=== PATIENT | female | born 1985 | race Caucasian/White ===

== ENCOUNTER 2019-10-31 10:03 | Inpatient (IN) | payer OTHER ==
[~2019-10-31] VITALS: Ht 154.9 cm; Wt 111.3 kg
[2019-10-31] MEDS ORDERED: SODIUM CHLORIDE 0.9% 1000ML 1,000 ML IV STA (10:20)
[2019-10-31] MEDS ORDERED: ONDANSETRON HCL INJ 2MG/ML 2ML 2 MG/ML VIAL IV STA (10:29)
[2019-10-31 11:20] LABS: CLARITY,URINE CLEAR (CLEAR); COLOR,URINE YELLOW (YELLOW); LEUKOCYTE ESTERASE ,URINE SMALL (NEGATIVE); NITRITE,URINE NEGATIVE (NEGATIVE); PROTEIN,URINE DIPSTICK NEGATIVE (NEGATIVE)
[2019-10-31 11:21] LABS: BILIRUBIN,URINE SMALL (NEGATIVE); KETONES,URINE NEGATIVE (NEGATIVE); URINE UROBILINOGEN 0.2 mg/dL (0.2 - 1)
[2019-10-31 11:35] LABS: BASOPHILS # (AUTO) 0.1 (0.0-0.1); BASOPHILS % 0.4 % (0.0-1.0); EOSINOPHILS # (AUTO) 0.2 (0.0-0.4); HEMATOCRIT 39.6 % (34.2-44.1); HEMOGLOBIN 13.3 g/dL (12.0-16.0); LYMPHOCYTES # (AUTO) 1.7 (1.0-3.2); LYMPHOCYTES % 14.7 % (18.0-39.1); MEAN CORPUSCULAR HGB CONC 33.6 g/dL (31-35); MEAN CORPUSCULAR VOLUME 89.2 fL (81-99); MONOCYTES # (AUTO) 0.9 (0.2-0.8); MONOCYTES % 7.8 % (4.4-11.3); NEUTROPHILS # (AUTO) 8.7 (2.1-6.9); NEUTROPHILS % 74.5 % (38.7-80.0); PLATELET COUNT 326 x10e3/uL (140-360); RED BLOOD COUNT 4.44 x10e6/uL (3.6-5.1); RED CELL DISTRIBUTION WIDTH 12.7 % (11.7-14.4)
[2019-10-31 11:45] LABS: BACTERIA,URINE MODERATE /HPF; EPITHELIAL CELLS,URINE MANY /LPF; RBC,URINE 21-50 /HPF (0-5); WBC,URINE (MAN) >50 /HPF (0-5)
[2019-10-31 11:50] LABS: INR 0.95; PARTIAL THROMBOPLASTIN TIME 26.4 seconds (23.8-35.5); PROTHROMBIN TIME 12.9 seconds (11.9-14.5)
[2019-10-31 11:57] LABS: ALANINE AMINOTRANSFERASE 264 IU/L (0-55); ALBUMIN 3.5 g/dL (3.5-5.0); ALBUMIN/GLOBULIN RATIO 0.9 (0.8-2.0); ALKALINE PHOSPHATASE 304 IU/L (40-150); AMYLASE 41 U/L (25-125); ANION GAP 12.4 mmol/L (8-16); BLOOD UREA NITROGEN 6 mg/dL (7-26); BUN/CREATININE RATIO 8 (6-25); CALCIUM 8.8 mg/dL (8.4-10.2); CARBON DIOXIDE 21 mmol/L (22-29); CHLORIDE 104 mmol/L (98-107); CREATININE, SERUM 0.75 mg/dL (0.57-1.11); EST GLOMERULAR FILTRATION RATE > 60 ML/MIN (60-); GLUCOSE 96 mg/dL (74-118); LIPASE 12 U/L (8-78); POTASSIUM 3.4 mmol/L (3.5-5.1); SODIUM 134 mmol/L (136-145)
[2019-10-31 12:23] LABS: HCG,QUANTITATIVE 16544.86 mIU/mL (0-10)
--- NOTE | 2019-10-31 13:12 | Diagnostic Imaging Report ---
Right upper quadrant abdominal ultrasound, 10/31/2019. History: Abdominal pain. Comparison: None available. Discussion: Transverse and longitudinal images of the right upper quadrant of the abdomen were obtained demonstrating a liver of normal size and echogenicity measuring 16.7 cm in length. There is no evidence of a focal hepatic mass. The portal vein is patent with hepatopetal flow and is within normal limits measuring 8 mm in diameter. The biliary tree is within normal limits with the common bile duct measuring 3 mm in diameter. The gallbladder is contains several shadowing stones measuring up to 2.4 cm. The gallbladder wall is prominent measuring 5 mm. There is no pericholecystic fluid. The sonographic Melgar's sign was negative. The right kidney is normal in size and echogenicity without evidence of hydronephrosis, stones, or mass and measures 11.3 cm in length. The pancreatic <body and tail> are visualized and are normal in appearance. The abdominal aorta is within normal limits. There is no evidence of free fluid. IMPRESSION: Cholelithiasis with gallbladder wall thickening but negative sonographic Melgar's sign. Signed by: Raman Oliver on 10/31/2019 1:09 PM
--- NOTE | 2019-10-31 13:16 | Diagnostic Imaging Report ---
EXAM: US OB 1st TRIM SINGLE GEST DATE: 10/31/2019 12:00 AM INDICATION: Abdominal pain and back pain. COMPARISON: None TECHNIQUE: Transvaginal sonographic images of the pelvis were obtained using allison scale and color doppler. Transvaginal imaging was medically necessary to better evaluate the fetus. G 3P2A 0 LMP FINDINGS: UTERUS: 9.2 x 5.8 x 6.6 cm, anteverted Normal appearance of the cervix. No uterine masses. GESTATIONAL SAC: Normal appearance of intrauterine gestational sac. No evidence of a subchorionic hemorrhage. YOLK SAC: Visualized EMBRYO/FETUS: [place] rump length: 0.5 cm Estimated sonographic gestational age: 6w2d Cardiac activity: 120 bpm RIGHT OVARY: 2.9 x 2.2 x 2.1 cm No abnormal cysts or masses. LEFT OVARY: Not visualized, presumably obscured by overlying bowel gas. CUL-DE-SAC: No free fluid. IMPRESSION: Viable intrauterine . Estimated sonographic age of 6w2d. Signed by: Raman Oliver on 10/31/2019 1:14 PM
[2019-10-31] MEDS ORDERED: BUTORPHANOL TARTRATE INJ 1 MG/ML VIAL IV PRN (14:15)
[2019-10-31] MEDS ORDERED: ONDANSETRON HCL INJ 2MG/ML 2ML 2 MG/ML VIAL IV PRN (14:15)
--- OUTSIDE RECORDS SUMMARY | 2019-10-31 14:22 | XMS REPORT ---
Author Author [facility] Address Unknown Phone Unavailable Care Team Providers Care Spooling Supervisor Name Role Phone Ivelisse VALVERDE Unavailable Unavailable Problems This patient has no known problems. Allergies, Adverse Reactions, Alerts This patient has no known allergies or adverse reactions. Medications This patient has no known medications. Results Test Description Test Time Test Comments Text Results Atomic Results Result Comments OB 1st TRIM SINGLE GEST 2019-10-31 13:10:00 [facility] [address] [place] [address] Patient Name: VILLA YAÑEZ MR #: [id number] : 1985 Age/Sex: 34/F Req #: [id number] Adm Physician: Ordered by: GARY VALVERDE MD Report #: [id number] Location: ER Room/Bed: Procedure: [id number] US/US OB 1st TRIM SINGLE GEST Exam Date: 10/31/19 Exam Time: 1220 REPORT STATUS: Signed EXAM: US OB 1st TRIM SINGLE GEST DATE: 10/31/2019 12:00 AM INDICATION: Abdominal pain and back pain. COMPARISON: None TECHNIQUE: Transvaginal sonographic images of the pelvis were obtained using allison scale and color doppler. Transvaginal imaging was medically necessary to better evaluate the fetus. G 3P2A 0 LMP FINDINGS: UTERUS: 9.2 x 5.8 x 6.6 cm, anteverted Normal appearance of the cervix. No uterine masses. GESTATIONAL SAC: Normal appearance of intrauterine gestational sac. No evidence of a subchorionic hemorrhage. YOLK SAC: Visualized EMBRYO/FETUS: [place] rump length: 0.5 cm Estimated sonographic gestational age: 6w2d Cardiac activity: 120 bpm RIGHT OVARY: 2.9 x 2.2 x 2.1 cm No abnormal cysts or masses. LEFT OVARY: Not visualized, presumably obscured by overlying bowel gas. CUL-DE-SAC: No free fluid. IMPRESSION: Viable intrauterine . Estimated sonographic age of 6w2d. Signed by: Raman Oliver on 10/31/2019 1:14 PM Dictated By: RAMAN OLIVER MD [id number] Transcribed By: HEMAL on 10/31/19 1314 COPY TO: GARY VALVERDE MD US GALLBLADDER 2019-10-31 13:07:00 [place] [id number] Patient Name: VILLA YAÑEZ MR #: [id number] : 1985 Age/Sex: 34/F Req #: [id number] Adm Physician: Ordered by: GARY VALVERDE MD Report #: [id number] Location: ER Room/Bed: Procedure: [id number] US/US GALLBLADDER Exam Date: 10/31/19 Exam Time: 1152 REPORT STATUS: Signed Right upper quadrant abdominal ultrasound, 10/31/2019. History: Abdominal pain. Comparison: None available. Discussion: Transverse and longitudinal images of the right upper quadrant of the abdomen were obtained demonstrating a liver of normal size and echogenicity measuring 16.7 cm in length. There is no evidence of a focal hepatic mass. The portal vein is patent with hepatopetal flow and is within normal limits measuring 8 mm in diameter. The biliary tree is within normal limits with the common bile duct measuring 3 mm in diameter. The gallbladder is contains several shadowing stones measuring up to 2.4 cm. The gallbladder wall is prominent measuring 5 mm. There is no pericholecystic fluid. The sonographic Melgar's sign was negative. The right kidney is normal in size and echogenicity without evidence of hydronephrosis, stones, or mass and measures 11.3 cm in length. The pancreatic <body and tail> are visualized and are normal in appearance. The abdominal aorta is within normal limits. There is no evidence of free fluid. IMPRESSION: Cholelithiasis with gallbladder wall thickening but negative sonographic Melgar's sign. Signed by: Raman Oliver on 10/31/2019 1:09 PM Dictated By: RAMAN OLIVER MD [id number] Transcribed By: HEMAL on 10/31/19 [id number] COPY TO: GARY VALVERDE MD
[2019-10-31] MEDS: PIPER-TAZ 3.375 GM 50 ML IV SCH ×2 (14:45→21:00)
[2019-10-31] MEDS: SODIUM CHLORIDE 0.9% 1000ML 1,000 ML IV SCH ×2 (14:45→22:05)
--- NOTE | 2019-10-31 17:14 | NUR ---
Recvd patient from from ER, AAOx3, Not in any distress this time, denies any pain, call light in reach
[2019-10-31 17:21] VITALS: BP 118/71
[2019-10-31 18:17] VITALS: BP 118/71
--- NOTE | 2019-10-31 19:28 | NUR ---
Patient received sitting up in bed. AAO x 4. Family at bedside. Patient had no complaints of pain. Respirations even and non-labored . IVF infusing at 125 cc/hr. Fall precautions implemented. Patient instructed to call for assistance when needed. Call light within reach.
[2019-10-31 20:00] VITALS: BP 93/67
[2019-10-31 21:00] VITALS: BP 93/67
--- NOTE | 2019-10-31 21:31 | Consultation ---
DATE OF CONSULTATION: 10/31/2019 HISTORY OF PRESENT ILLNESS: The patient is a 34-year-old female, who is 6 weeks , presents with complaints of right upper quadrant abdominal pain, which started about 4 days prior to arrival in the emergency room. She has not had similar pains in the past. She was evaluated with ultrasound of the abdomen, which revealed gallstones with thickened gallbladder wall. She has no symptoms of jaundice. She has not had any fever. PAST MEDICAL HISTORY: Otherwise, unremarkable. She denies chronic medical problems. MEDICATIONS: There were no current medications. ALLERGIES: NO KNOWN ALLERGIES. PAST SURGICAL HISTORY: No previous surgeries. FAMILY HISTORY: Noncontributory. SOCIAL HISTORY: The patient does not smoke cigarettes or drink alcohol. REVIEW OF SYSTEMS: As stated above, otherwise was negative. PHYSICAL EXAMINATION: GENERAL: The patient is awake and alert, in no distress. VITAL SIGNS: Normal. She is not tachycardic. She is afebrile. HEENT: Sclerae is nonicteric. NECK: Supple. No masses. LUNGS: Equal breath sounds are clear bilaterally. CARDIAC: Regular rate and rhythm with no murmur. ABDOMEN: Tender right upper quadrant with no signs of peritonitis. No mass. No distention. No organomegaly. EXTREMITIES: Have no edema. NEUROLOGIC: Intact. LABORATORY TEST: White blood count slightly elevated 11.7, hemoglobin and hematocrit are normal. Chemistries reveal elevated liver function tests with elevated bilirubin 1.4. ASSESSMENT: A 34-year-old female with findings most suggestive of acute cholecystitis with cholelithiasis. She is to be started on IV antibiotics. If her symptoms improve with nonoperative therapy, then plan to try carried along at least to the 2nd trimester her and then consider cholecystectomy. However, if her pain persists or signs of worsening infection, then she is likely benefit cholecystectomy, although the best if she could be at least wait until the 2nd trimester, this was explained to the patient. Thank you for asking me to see Ms. Rodriguez. MD NOE Scott/DENICE /[id number]
[2019-11-01] VITALS (8 sets, daily range): BP systolic 92–102; BP diastolic 51–66
[2019-11-01] MEDS: PIPER-TAZ 3.375 GM 50 ML IV SCH ×4 (02:20→22:00)
[2019-11-01 05:17] LABS: BASOPHILS % 0.5 % (0.0-1.0); EOSINOPHILS # (AUTO) 0.4 (0.0-0.4); EOSINOPHILS % 4.7 % (0.0-6.0); HEMATOCRIT 36.9 % (34.2-44.1); LYMPHOCYTES # (AUTO) 1.8 (1.0-3.2); LYMPHOCYTES % 22.5 % (18.0-39.1); MEAN CORPUSCULAR HEMOGLOBIN 29.3 pg (28-32); MEAN CORPUSCULAR HGB CONC 32.5 g/dL (31-35); MEAN CORPUSCULAR VOLUME 90.2 fL (81-99); MONOCYTES # (AUTO) 0.6 (0.2-0.8); MONOCYTES % 7.5 % (4.4-11.3); NEUTROPHILS # (AUTO) 5.3 (2.1-6.9); NEUTROPHILS % 64.2 % (38.7-80.0); PLATELET COUNT 301 x10e3/uL (140-360); RED BLOOD COUNT 4.09 x10e6/uL (3.6-5.1); RED CELL DISTRIBUTION WIDTH 12.8 % (11.7-14.4)
[2019-11-01 05:39] LABS: ALANINE AMINOTRANSFERASE 450 IU/L (0-55); ALBUMIN 3.1 g/dL (3.5-5.0); ALBUMIN/GLOBULIN RATIO 0.9 (0.8-2.0); ALKALINE PHOSPHATASE 299 IU/L (40-150); ANION GAP 11.6 mmol/L (8-16); BLOOD UREA NITROGEN < 5 mg/dL (7-26); CALCIUM 8.5 mg/dL (8.4-10.2); CARBON DIOXIDE 18 mmol/L (22-29); CHLORIDE 109 mmol/L (98-107); CREATININE, SERUM 0.69 mg/dL (0.57-1.11); EST GLOMERULAR FILTRATION RATE > 60 ML/MIN (60-); GLUCOSE 88 mg/dL (74-118); LIPASE 11 U/L (8-78); POTASSIUM 3.6 mmol/L (3.5-5.1); SODIUM 135 mmol/L (136-145)
[2019-11-01 05:40] LABS: BUN/CREATININE RATIO 7 (6-25)
--- NOTE | 2019-11-01 07:16 | NUR ---
Patient resting comfortably. Walking rounds done. Bed-side report given to oncoming nurse regarding patient's status.
--- NOTE | 2019-11-01 11:20 | NUR ---
MRI Called and said per Radiologist he cant perform MRI Since patient is . Notified to Dr Eldridge
--- NOTE | 2019-11-01 11:45 | NUR ---
Call recvd from Dr Eldridge he was saying that MRI MRCP is indicated for First trimester , notified to Radiology, they said per protocol Radiologist Will NOT do MRI with first trimester. Dr Eldridge aware
--- NOTE | 2019-11-01 12:40 | NUR ---
Dr Eldridge had rounds , stated depends up on Liver enzymes Lab in morning he gonna do ERCP tomorrow, He Explained to Patient
--- NOTE | 2019-11-01 16:41 | NUR ---
Patient got new consult with Dr Jian Govea from Dr Moore, Per Dr Jian Govea patient is indicated for MRCP and He said He was wondering why the radiology don't do MRCP and he said he will talk to Dr Gudelia Sosa about it. Patient aware about OBG/CLERICAL PROOFREADER consult
--- NOTE | 2019-11-01 18:20 | NUR ---
Patient up in bed, alert with no distress, denies any pain this time, continue monitoring
--- NOTE | 2019-11-01 19:20 | Consultation ---
DATE OF CONSULTATION: 11/01/2019 HISTORY OF PRESENT ILLNESS: This is a 34-year-old, who is currently about 6 weeks , presented to the hospital because of significant pain, which is mainly in the right upper quadrant area associated with darkening of the urine. She denies any nausea or vomiting and apparently workup so far revealed that she have acute cholecystitis. However, her liver enzymes appear to be worsening overnight. GI consult is obtained because of worsening liver enzymes, rule out possibility of bile duct stones. PAST MEDICAL PROBLEM: Otherwise, really unremarkable. ALLERGIES: NONE. SOCIAL HISTORY: No alcohol use. FAMILY HISTORY: Noncontributory. REVIEW OF SYSTEMS: Denies any chest pain or shortness of breath. Denies any dysphagia or odynophagia. Denies any dysuria, hematuria, or any kind of syncopal episode. PHYSICAL EXAMINATION: GENERAL: The patient is awake and alert, appears to be stable, not in acute distress at this point. VITAL SIGNS: Afebrile, currently without vital signs. HEAD, EYES, EARS, NOSE, AND THROAT: Normocephalic and atraumatic. Sclerae anicteric. NECK: Supple. HEART: Regular. ABDOMEN: Soft. There is tenderness in the upper quadrant area. There is no rebound or mass. EXTREMITIES: No clubbing or cyanosis. LABORATORY VALUES: On admission, AST of 360, ALT of 264, alkaline phosphatase is 304, and bilirubin 1.4. PT 12.9 and INR 0.95. Potassium 3.4, BUN 6, and creatinine 0.76. CBCs appears to be normal. IMPRESSION: 1. Acute cholecystitis with common bile duct stones. 2. Six-week intrauterine . RECOMMENDATION: I would like to get an MRCP, however, I am not able to do that because she is in the first trimester. I explained to her in long and detail about the possibility of ERCPs, especially if her LFTs are worsening. I explained to her the risks and the benefits with or without ERCPs. At this point, I will monitor and check labs tomorrow. If the liver enzyme is worsened, then we probably likely to proceed with ERCP. MD DENZEL Mon/DENICE /[id number] cc: MD Dr. Candace Thompson
--- NOTE | 2019-11-01 19:35 | NUR ---
Patient received sitting up in bed. AAO x 4. No acute distress noted. Safety measures in place. Call light within reach.
--- NOTE | 2019-11-01 21:38 | NUR ---
IV infiltrated on right arm. Old IV removed with tip intact. New IV inserted in left hand 20G. Patient tolerated well.
[2019-11-01] MEDS: SODIUM CHLORIDE 0.9% 1000ML 1,000 ML IV SCH (22:05)
[2019-11-02] VITALS (7 sets, daily range): BP systolic 93–114; BP diastolic 57–93
[2019-11-02] MEDS: PIPER-TAZ 3.375 GM 50 ML IV SCH ×4 (02:00→20:30)
--- NOTE | 2019-11-02 02:16 | Consultation ---
DATE OF CONSULTATION: 11/01/2019 REASON FOR CONSULTATION: The patient is a 34-year-old 3, para 2-0-0-2 with last menstrual period September 13, 2019, estimated date of confinement June 19, 2020 at seven weeks by dates, but six weeks by ultrasound done during this hospitalization, who presented with nausea and vomiting and abdominal pain on Tuesday, which was severe. She was admitted, found to have cholecystitis and elevated liver functions. She has been treated with supportive care in the hospital and had questions about the need for cholecystectomy in the 1st trimester and her testing in the 1st trimester. PAST MEDICAL HISTORY: Remarkable for hypothyroidism. PAST SURGICAL HISTORY: Remarkable for lap band four years ago with which she lost 70 pounds and for right ACL repair at age 15. ALLERGIES: SHE HAS NO KNOWN DRUG ALLERGIES. CURRENT MEDICATIONS: Levothyroxine 175 mcg p.o. q.a.m., vitamins, p.r.n. Tylenol, which she has not taken since yesterday. GYNECOLOGIC HISTORY: She has two normal spontaneous vaginal deliveries in 2009. She had a spontaneous vaginal delivery at 37 and half weeks of a 6 pounds 7 ounce male infant after 7 hours labor and in 2010 at 38 and half weeks she had normal spontaneous vaginal delivery of a 7 pounds 7 ounce male infant after 11 hours labor. FAMILY HISTORY: Remarkable for her mother with type 2 diabetes, and her maternal grandmother is from ovarian cancer at age 67. SOCIAL HISTORY: She is a nonsmoker. Drinks occasional alcohol, none while . She denies any IV drug abuse. REVIEW OF SYSTEMS: Negative. PHYSICAL EXAMINATION: VITAL SIGNS: Temperature 97.7, pulse 62, respirations 18, blood pressure 96/51. Ultrasound shows a six weeks and two days viable embryo with heart tones in the 120s. LABORATORY VALUES: White count has gone down from 11.7 yesterday to 8.1 today, hemoglobin is 12.0, hematocrit 36.9, neutrophils percentage went from 74% to 64%. Chemistry revealed sodium of 135, potassium 3.6, chloride 109, carbon dioxide 18, BUN less than 5, creatinine 0.69, bilirubin 2.3, AST 322, ALT 450. Alkaline phosphatase 299, albumin 3.1. Amylase and lipase are within normal limits. Beta HCG was positive. IMPRESSION: Intrauterine at 6+ weeks with cholecystitis. PLAN: Temporizing until the 2nd trimester at 11-12 weeks is recommended prior to removal of the gallbladder unless her situation becomes emergent. The patient's questions were answered. An ERCP would not be recommended in the first trimester. If needed, MRCP is preferred, but hopefully will not be necessary in this patient if she continues to recover. Thank you very much for this consultation. Do not hesitate to call if there are any questions. Jian Govea MD [facility]/MODL /[id number]
[2019-11-02 05:21] LABS: BASOPHILS % 0.5 % (0.0-1.0); EOSINOPHILS # (AUTO) 0.3 (0.0-0.4); EOSINOPHILS % 3.6 % (0.0-6.0); HEMOGLOBIN 11.9 g/dL (12.0-16.0); LYMPHOCYTES # (AUTO) 1.7 (1.0-3.2); LYMPHOCYTES % 20.5 % (18.0-39.1); MEAN CORPUSCULAR HEMOGLOBIN 30.2 pg (28-32); MEAN CORPUSCULAR HGB CONC 33.1 g/dL (31-35); MEAN CORPUSCULAR VOLUME 91.4 fL (81-99); MONOCYTES # (AUTO) 0.5 (0.2-0.8); MONOCYTES % 5.6 % (4.4-11.3); NEUTROPHILS # (AUTO) 5.9 (2.1-6.9); NEUTROPHILS % 69.3 % (38.7-80.0); PLATELET COUNT 267 x10e3/uL (140-360); RED BLOOD COUNT 3.94 x10e6/uL (3.6-5.1); RED CELL DISTRIBUTION WIDTH 12.8 % (11.7-14.4)
[2019-11-02 05:53] LABS: ALANINE AMINOTRANSFERASE 304 IU/L (0-55); ALBUMIN/GLOBULIN RATIO 0.9 (0.8-2.0); ALKALINE PHOSPHATASE 225 IU/L (40-150); ANION GAP 13.4 mmol/L (8-16); BLOOD UREA NITROGEN < 5 mg/dL (7-26); CALCIUM 8.3 mg/dL (8.4-10.2); CARBON DIOXIDE 18 mmol/L (22-29); CHLORIDE 108 mmol/L (98-107); CREATININE, SERUM 0.67 mg/dL (0.57-1.11); EST GLOMERULAR FILTRATION RATE > 60 ML/MIN (60-); GLUCOSE 85 mg/dL (74-118); POTASSIUM 3.4 mmol/L (3.5-5.1); SODIUM 136 mmol/L (136-145)
[2019-11-02 05:55] LABS: BUN/CREATININE RATIO 7 (6-25)
[2019-11-02] MEDS: SODIUM CHLORIDE 0.9% 1000ML 1,000 ML IV SCH ×2 (06:05→15:00)
--- NOTE | 2019-11-02 07:00 | NUR ---
BEDSIDE SHIFT REPORT RECEIVED FROM THE SENIOR DB2 SYSTEMS PROGRAMMER RN. EDUCATED PT ABOUT FALL PRECAUTIONS. CALL LIGHT WITH IN EASY REACH. INSTRUCTED PT TO USE CALL LIGHT FOR ALL THE NEEDS. PT VERBALIZED UNDERSTANDING. BED IS LOW AND LOCKED. SIDE RAILS X2. PT IS ON NPO. PT DENIES NEEDS AT THIS TIME.
--- NOTE | 2019-11-02 07:00 | NUR ---
Shift report given to oncoming nurse.
--- NOTE | 2019-11-02 09:30 | NUR ---
PAGED DR. TRONCOSO REGARDING PT NPO STATUS. WAITING FOR THE CALL BACK FROM THE
--- NOTE | 2019-11-02 10:00 | NUR ---
CALL BACK RECEIVED FROM DR. TRONCOSO. NEW ORDER FOR GI SOFT DIET AND CANCEL ERCP PER THE
--- NOTE | 2019-11-02 19:00 | NUR ---
BEDSIDE SHIFT REPORT GIVEN TO THE CLOTH EXAMINER RN. PT DENIED FURTHER NEEDS.
--- NOTE | 2019-11-02 19:30 | NUR ---
Patient received sitting in recliner chair. AAO x 4. Denies pain at this time. Call light within reach.
[2019-11-03] VITALS: BP 100/77
[2019-11-03] MEDS: PIPER-TAZ 3.375 GM 50 ML IV SCH (02:00)
[2019-11-03 03:18] VITALS: BP 100/77
[2019-11-03 04:00] VITALS: BP 101/74
--- NOTE | 2019-11-03 07:00 | NUR ---
Walking rounds done. Patient resting comfortably. BSSR given to oncoming nurse regarding patient's status.
[2019-11-03 07:16] LABS: ALBUMIN 2.8 g/dL (3.5-5.0); BILIRUBIN,DIRECT 0.3 mg/dL (0.0-0.5)
[2019-11-03 08:31] VITALS: BP 101/70
[2019-11-03 08:58] VITALS: BP 101/70
--- NOTE | 2019-11-03 09:59 | Progress Note ---
DATE: 11/03/2019 SUBJECTIVE: A 34-year-old female with acute cholecystitis status post laparoscopic cholecystectomy. The patient is also gravid with first trimester . No complaints. No chest pain. No shortness of breath. Has been having bowel sounds. Bowel movements are positive. No complaints. The patient has been well groomed without any complaints. Currently, on Zosyn and doing well. OBJECTIVE: VITAL SIGNS: Temperature is 98.1, pulse of 68, respirations of 18, blood pressure is 101/70, pulse oximeter of 99%. HEENT: Normocephalic and atraumatic. CVS: S1 and S2 normal. Regular rate and rhythm. ABDOMEN: Nontender and nondistended. Surgical sites and scars are within normal limits. No drainage present. EXTREMITIES: No clubbing, cyanosis, trace edema present. ASSESSMENT: Ms. Michael Putnam is a 34-year-old female with: Intrauterine , six weeks plus with history of acute cholecystitis status post laparoscopic cholecystectomy. The patient is doing well, can be discharged today. Further recommendation per clinical course. The patient will be followed up by her OB, Dr. Govea and continue monitoring her fetus and also herself. MD FLAKITO Mares/DENICE /[id number]
--- NOTE | 2019-11-11 02:01 | Discharge Summary ---
DISCHARGE DIAGNOSES: 1. Gallstone. 2. Acute cholecystitis. 3. Elevated liver function tests. 4. . HISTORY OF PRESENT ILLNESS AND HOSPITAL COURSE: See hospital chart for full details. The patient is a lady, who is about six weeks , who presented with abdominal pain, right upper quadrant where she was noticed to have some gallstones, elevated liver function test, so she was brought in, placed on IV antibiotics and was seen by GI as well as OB as well as surgery and due to her status since the patient was no longer having any symptoms of abdominal pain she was monitored with improvement of her liver function tests each day. At the time of discharge, it was felt like the patient had passed a gallstone and notes she still had some evidence of gallstones in her gallbladder. She was no longer having any further pain and due to her it was discussed that we will go ahead and try to do medical management and try to get her to the 2nd trimester that if she has worsening pain at that time to do the elective cholecystectomy then if necessary. The patient has follow up with her primary care physician as well as her OB as well as the surgeon within one two weeks or return back to the hospital if she gets worse. Please see also chart for full details. MD PEMA Thompson/DENICE /[id number]
== END 2019-11-03 09:57 | disposition home or self-care (01) | DRG 832 ==
LOC: ER 10:03 → INTOOBSV 14:05 → ERHOLD 14:05 → OBSVTOIN 14:11 → MED/SURG2 17:08
PROVIDERS: ADMIT Internal Medicine; ATTEND Internal Medicine
DX: O99.611 Diseases of the digestive system complicating pregnancy, first trimester (principal); K80.00 Calculus of gallbladder with acute cholecystitis without obstruction; Z3A.01 Less than 8 weeks gestation of pregnancy
CPT/HCPCS: 36415; 76705; 76801; 80053; 80076; 81001; 82150; 82248; 83690; 84702; 85025; 85610; 85730; 87086; 99284; J2405; J2543; J7030